=== PATIENT | male | born 1970 | race Caucasian/White ===

== ENCOUNTER 2017-09-20 18:28 | Emergency (ER) | payer BC ==
--- NOTE | 2017-09-20 19:41 | ER Document Report ---
ED Medical Screen (RME) - General Mode of Arrival: Ambulatory Information source: Patient TRAVEL OUTSIDE OF THE [place] IN LAST 30 DAYS: No <ERIN JIMENEZ - Last Filed: 09/20/17 19:35> <RICKEY DENNISON - Last Filed: 09/20/17 20:18> - General Chief Complaint: Leg Swelling Stated Complaint: LEG PAIN Time Seen by Provider: 09/20/17 19:30 Notes: Patient is a 46 year old male presenting to the ED for swelling, warmth, and erythema in his right lower extremity. Patient states he drove down here for vacation and it was a [address] Patient states he is driving back soon and wanted to get his leg checked out first. Patient states it is also painful to touch. (ERIN JIMENEZ) - Related Data Allergies/Adverse Reactions: Penicillins Allergy (Verified 09/20/17 18:40) Past Medical History Renal/ Medical History: Denies: Hx Peritoneal Dialysis <ERIN JIMENEZ - Last Filed: 09/20/17 19:35> Physical Exam <ERIN JIMENEZ - Last Filed: 09/20/17 19:35> <RICKEY DENNISON - Last Filed: 09/20/17 20:18> - Vital signs Vitals: Temp Pulse Resp BP Pulse Ox 99.0 F 96 20 160/80 H 97 09/20/17 18:39 09/20/17 18:39 09/20/17 18:39 09/20/17 18:39 09/20/17 18:39 - Notes Notes: GENERAL: Alert, interacts well. No acute distress. LUNGS: No respiratory distress. EXTREMITIES: Gross swelling with 2+ pitting edema to the right lower extremity. Diffuse mild erythema extending up the right calf. Moderate tenderness to palpation of the right calf. Dorsal pedis pulses are 2/4 bilaterally. Right lower extremity is warmer than the left. Small right patellar effusion. (ERIN JIMENEZ) Course - Laboratory Result Diagrams: 09/20/17 19:50 09/20/17 19:50 <RICKEY DENNISON - Last Filed: 09/20/17 20:18> - Vital Signs Vital signs: Temp Pulse Resp BP Pulse Ox 99.0 F 96 20 160/80 H 97 09/20/17 18:39 09/20/17 18:39 09/20/17 18:39 09/20/17 18:39 09/20/17 18:39 Scribe Documentation - Scribe Written by Scribe:: Kay Wiseman 09/20/2017 19:40 acting as scribe for :: Erik <ERIN JIMENEZ - Last Filed: 09/20/17 19:35>
[2017-09-20 20:22] LABS: APPEARANCE,URINE CLEAR; BILIRUBIN,URINE NEGATIVE (NEGATIVE); GLUCOSE, URINE NEGATIVE (NEGATIVE); KETONES,URINE NEGATIVE (NEGATIVE); LEUKOCYTE ESTERASE,URINE NEGATIVE (NEGATIVE); NITRITE,URINE NEGATIVE (NEGATIVE); PROTEIN,URINE 30 mg/dL (NEGATIVE); URINE SPECIFIC GRAVITY 1.033
[2017-09-20 20:24] LABS: PROTHROMBIN TIME 13.6 SEC (11.4-15.4)
[2017-09-20 20:25] LABS: ABSOLUTE EOSINOPHILS # (AUTO) 0.1 10^3/uL (0.0-0.6); ABSOLUTE LYMPHOCYTES (AUTO) 1.6 10^3/uL (0.5-4.7); ABSOLUTE MONOCYTES (AUTO) 0.7 10^3/uL (0.1-1.4); ABSOLUTE NEUT (AUTO) 8.5 10^3/uL (1.7-8.2); BASOPHILS % (AUTO) 0.4 % (0-2); EOSINOPHILS % (AUTO) 1.3 % (0-6); HEMATOCRIT 39.2 % (37.9-51.0); HEMOGLOBIN 13.5 g/dL (13.5-17.0); HGB HCT DIFFERENCE 1.3; LYMPHOCYTES % (AUTO) 14.8 % (13-45); MEAN CORPUSCULAR HEMOGLOBIN 28.8 pg (27.0-33.4); MEAN CORPUSCULAR HGB CONC 34.4 g/dL (32.0-36.0); MEAN CORPUSCULAR VOLUME 84 fl (80-97); MONOCYTES % (AUTO) 6.7 % (3-13); RED BLOOD COUNT 4.68 10^6/uL (4.35-5.55); RED CELL DISTRIBUTION WIDTH 14.2 % (11.5-14.0); SEGMENTED NEUTROPHILS % (AUTO) 76.8 % (42-78); WHITE BLOOD COUNT 11.1 10^3/uL (4.0-10.5)
[2017-09-20 20:33] LABS: ALANINE AMINOTRANSFERASE 75 U/L (21-72); ALBUMIN 4.3 g/dL (3.5-5.0); ALKALINE PHOSPHATASE 94 U/L (38-126); ANION GAP 13 (5-19); ASPARTATE AMINO TRANSFERASE 50 U/L (17-59); BILIRUBIN,DIRECT 0.4 mg/dL (0.0-0.4); BILIRUBIN,TOTAL 0.5 mg/dL (0.2-1.3); BLOOD UREA NITROGEN 17 mg/dL (7-20); CALCIUM 9.7 mg/dL (8.4-10.2); CARBON DIOXIDE 28 mmol/L (22-30); CHLORIDE 104 mmol/L (98-107); CREATININE RESULT 1.02 mg/dL (0.52-1.25); GLUCOSE 115 mg/dL (75-110); POTASSIUM 3.8 mmol/L (3.6-5.0); SODIUM 144.5 mmol/L (137-145)
--- NOTE | 2017-09-20 22:10 | ER Document Report ---
ED General - General Chief Complaint: Leg Swelling Stated Complaint: LEG PAIN Time Seen by Provider: 09/20/17 19:30 Mode of Arrival: Ambulatory Notes: Patient is a 46-year-old male who presents with 2 days of swelling and pain to the right lower extremity. Patient states that this started working on installing a new floor down in [place] with 1 of his friends. He did drive approximately 20 hours to the location from [place]. He is here in [place] visiting his son who lives in the area so came to this emergency department for evaluation. He notes that he has had increasing swelling and pain to the area which is a dull, constant throbbing pain. Walking on the area worsens the pain. He has not tried any to improve the pain. He has no prior history of DVT or pulmonary embolus. Does note that he has intermittently felt chilled and somewhat febrile since onset of the swelling and redness to the right lower extremity. He does deny history of similar symptoms in the past. TRAVEL OUTSIDE OF THE [place] IN LAST 30 DAYS: No - Related Data Allergies/Adverse Reactions: Penicillins Allergy (Verified 09/20/17 18:40) Past Medical History - General Information source: Patient - Social History Smoking Status: Never Smoker Chew tobacco use (# tins/day): No Frequency of alcohol use: None Drug Abuse: None Lives with: Family Family History: Reviewed & Not Pertinent Renal/ Medical History: Denies: Hx Peritoneal Dialysis Past Surgical History: Reports: Hx Orthopedic Surgery - left humerus - Immunizations Hx Diphtheria, Pertussis, Tetanus Vaccination: Yes - 2014 Review of Systems - Review of Systems Notes: Constitutional: Negative for fever. HENT: Negative for sore throat. Eyes: Negative for visual changes. Cardiovascular: Negative for chest pain. Respiratory: Negative for shortness of breath. Gastrointestinal: Negative for abdominal pain, vomiting or diarrhea. Genitourinary: Negative for dysuria. Musculoskeletal: Positive for right lower extremity pain and swelling Skin: Positive for rash. Neurological: Negative for headaches, weakness or numbness. 10 point ROS negative except as marked above and in HPI. Physical Exam - Vital signs Vitals: Temp Pulse Resp BP Pulse Ox 99.0 F 96 20 160/80 H 97 09/20/17 18:39 09/20/17 18:39 09/20/17 18:39 09/20/17 18:39 09/20/17 18:39 Interpretation: Hypertensive Notes: PHYSICAL EXAMINATION: GENERAL: Well-appearing, well-nourished and in no acute distress. HEAD: Atraumatic, normocephalic. EYES: Pupils equal round and reactive to light, extraocular movements intact, sclera anicteric, conjunctiva are normal. ENT: nares patent, oropharynx clear without exudates. Moist mucous membranes. NECK: Normal range of motion, supple without lymphadenopathy LUNGS: Breath sounds clear to auscultation bilaterally and equal. No wheezes rales or rhonchi. HEART: Regular rate and rhythm without murmurs ABDOMEN: Soft, nontender, normoactive bowel sounds. No guarding, no rebound. No masses appreciated. EXTREMITIES: Normal range of motion, 2+ pitting edema of the right lower extremity. NEUROLOGICAL: No focal neurological deficits. Moves all extremities spontaneously and on command. PSYCH: Normal mood, normal affect. SKIN: Warm, Dry, normal turgor, lacy, erythematous rash over the distal right lower extremity extending from the dorsum of the foot to approximately 3 cm past the knee tracing up towards the inner right thigh. Course - Re-evaluation Re-evalutation: 09/20/17 22:08 Patient presents with symptoms most consistent with an acute cellulitis. Vitals within normal limits. Patient does not meet sepsis criteria is overall very well in appearance. Given the associated edema and clinical history of an extended drive recently a ultrasound was obtained of the bilateral lower extremities did not show any evidence of an acute DVT. Patient be started on cephalexin. At this time will discharge with return precautions and follow-up recommendations. Verbal discharge instructions given a the bedside and opportunity for questions given. Medication warnings reviewed. Patient is in agreement with this plan and has verbalized understanding of return precautions and the need for primary care follow-up in the next 24-72 hours. - Vital Signs Vital signs: Temp Pulse Resp BP Pulse Ox 99.0 F 89 18 145/69 H 96 09/20/17 18:39 09/20/17 22:17 09/20/17 22:17 09/20/17 22:17 09/20/17 22:17 - Laboratory Result Diagrams: 09/20/17 19:50 09/20/17 19:50 Laboratory results interpreted by me: 09/20/17 09/20/17 09/20/17 19:50 19:50 19:50 WBC 11.1 H RDW 14.2 H Absolute Neutrophils 8.5 H Glucose 115 H ALT 75 H Urine Protein 30 H Urine Urobilinogen 2.0 H - Diagnostic Test Radiology reviewed: Reports reviewed Discharge - Discharge Clinical Impression: Cellulitis of leg, right Condition: Good Disposition: HOME, SELF-CARE Additional Instructions: The rash is likely due to infection of your skin. You need to take the antibiotics as prescribed. Do not stop even if the rash goes away until you have completed all the antibiotics. The area of redness was traced out here in the emergency department with a marking pen. You need to return to emergency department if the redness spreads outside of this area by more than 2 cm in any direction. You should also return if you develop fevers with temperature greater than 101, persistent vomiting, worsening pain, or have any other symptoms that are concerning to you. Prescriptions: Cephalexin Monohydrate [Keflex 500 mg Capsule] 500 mg PO Q6H 7 Days capsule
[2017-09-20] MEDS ORDERED: CEPHALEXIN 500 MG CAPSULE PO ONE (22:15)
[2017-09-20 22:28] VITALS: BP 145/69
--- NOTE | 2017-09-21 17:13 | XCELERA REPORT ---
[address] [address] Lower Extremity Venous Evaluation Name: SANG THOMAS Age: 46 yrs Gender: Male : 1970 Patient Status: Preadmit Patient Location: ER Study Date: 09/20/2017 09:10 PM Procedure: Color flow and duplex imaging of the veins of the right lower extremity as well as the left Common Femoral vein. Reason For Study: grossly swollen right leg after [address] Ordering Physician: RICKEY DENNISON Performed By: Ajit Kwong Right Sided Venous Evaluation Reflux noted in Short and Greater Saphenous veins. Otherwise normal vessel filling wall to wall, compression and augmentation as well as Colour flow down to the infrageniculate veins. Left Sided Venous Evaluation The left common femoral vein is fully compressible. Spontaneous and phasic flow is present in the left common femoral vein. Interpretation Summary No duplex evidence of DVT or obstruction in the right lower extremity nor in the left Common Femoral vein. Superficial phlebitis in the right Short and Greater Saphenous veins. : RICKEY DENNISON > Philip Ireland
== END 2017-09-20 22:27 | disposition home or self-care (01) ==
LOC: ER 18:28
DX: L03.115 Cellulitis of right lower limb (principal); M79.604 Pain in right leg; M79.89 Other specified soft tissue disorders
CPT/HCPCS: 36415; 80053; 81001; 85025; 85610; 93971; 99284